=== PATIENT | female | born 2000 | race Caucasian/White ===

== ENCOUNTER → 2022-06-29 14:36 | Outpatient (CLI) | payer OTHER, SELFPAY ==
--- NOTE | 2022-06-29 14:40 | DI.RAD.S_ITS ---
PROCEDURE: XR LUMBAR SPINE MIN 4V INDICATIONS: BACK PAIN TECHNIQUE: 5 views of the lumbar spine were acquired, including bilateral oblique views. COMPARISON: None. FINDINGS: Bones: 5 nonrib-bearing vertebrae are present. There is [id number] levoscoliosis of thoracolumbar spine centered at T12 level and compensatory mild dextroscoliosis of lumbar spine centered at L4 level. No vertebral body compression fractures. No suspicious bony lesions. Soft tissues: Overlying bowel gas pattern is normal. No suspicious soft tissue calcifications. Oblique images: No pars defects. IMPRESSION: Mcav-[id number]-[id number] scoliosis as above. No acute compression fracture or spondylolisthesis. No pars defects. No significant neural foraminal narrowing. Dictated by: Martinez Elliott M.D. on 06/29/2022 at 15:35 Approved by: Martinez Elliott M.D. on 06/29/2022 at 15:36
== END ==
PROVIDERS: PCP Family Medicine; Referring Provider Physical Medicine & Rehabilitation; Visit Provider Physical Medicine & Rehabilitation
DX: M41.86 Other forms of scoliosis, lumbar region (principal); M41.85 Other forms of scoliosis, thoracolumbar region; M54.9 Dorsalgia, unspecified
CPT/HCPCS: 72110